=== PATIENT | male | born 1950 | race Caucasian/White ===

== ENCOUNTER 2022-01-07 04:59 | Observation (INO) ==
--- NOTE | 2021-12-18 10:30 | PAT Medication Instructions ---
Medication Instructions Date of Service December 18, 2021 Home Medications aspirin 81 mg tablet,delayed release 81 mg PO HS atorvastatin 40 mg tablet 40 mg PO HS amoxicillin 500 mg tablet 2,000 mg PO UD diclofenac sodium 1 % topical gel 1 g topical QID PRN duloxetine 20 mg capsule,delayed release 20 mg PO QAM hydrochlorothiazide 12.5 mg capsule 12.5 mg PO QAM losartan 100 mg tablet 100 mg PO QAM Continue as directed amoxicillin 500 mg tablet 2,000 mg PO UD ASK your surgeon for instructions diclofenac sodium 1 % topical gel 1 g topical QID PRN DO NOT take the morning of surgery hydrochlorothiazide 12.5 mg capsule 12.5 mg PO QAM losartan 100 mg tablet 100 mg PO QAM Take morning of surgery With a small sip of water, OTHERWISE NOTHING TO EAT OR DRINK AFTER MIDNIGHT: duloxetine 20 mg capsule,delayed release 20 mg PO QAM Take evening before surgery aspirin 81 mg tablet,delayed release 81 mg PO HS (unless directed otherwise by surgeon) atorvastatin 40 mg tablet 40 mg PO HS Other Notes If you have any questions please call us at [phone] or [phone] or [phone] or [phone]
--- NOTE | 2021-12-25 14:01 | Anesthesiology Consultation ---
Date of Service December 25, 2021 Assessment & Plan (1) Encounter for pre-operative examination: - Outpatient joint assessment: Patient is currently scheduled for inpatient pathway. If re-evaluated pending system levels during current pandemic/surgeon requests outpatient pathway, patient is not recommended candidate for outpatient joint program from anesthesia standpoint. Chart Review Chart Review: Acceptable Risk for Surgery and Patient seen in Pre Admission Testing Teaching & Discussion Pre-Anesthesia Teaching/Discussion Notes: Instructed NPO after midnight before surgery, except medications with 15 cc of water. Medication instructions provided according to the PAT guidelines. History Surgery Operation Date: 01/07/22 07:00 Proposed Procedures p Right Total Knee Arthroplasty - Bradley Zavala MD Height/Weight Height: 6 ft Weight: 154.3 kg Allergies Allergy/AdvReac Type Severity Reaction Status Date / Time NSAIDS (Non-Steroidal AdvReac Unknown DX Verified 12/18/21 09:09 Anti-Inflamma DIVERTICULOSIS - CAUSED INTERNAL BLEEDING, MILD ANEMIA Medications Home Medications Medication Instructions Recorded Confirmed Last Taken aspirin 81 mg tablet,delayed 81 mg PO HS 02/10/20 12/18/21 03/06/20 release atorvastatin 40 mg tablet 40 mg PO HS 02/10/20 12/18/21 03/06/20 amoxicillin 500 mg tablet 2,000 mg PO UD 12/18/21 12/18/21 Unknown diclofenac sodium 1 % topical gel 1 g topical QID PRN Pain 12/18/21 12/18/21 Unknown duloxetine 20 mg capsule,delayed 20 mg PO QAM 12/18/21 12/18/21 Unknown release hydrochlorothiazide 12.5 mg capsule 12.5 mg PO QAM 12/18/21 12/18/21 Unknown losartan 100 mg tablet 100 mg PO QAM 12/18/21 12/18/21 Unknown Past Medical History Medical History (Updated 12/25/21 @ 14:20 by Julia Downey PA-C) Depression Fatty liver Paisley disease Hiatal hernia History of anemia History of diverticulosis Hyperlipidemia Hypertension controlled, stable per pt Prediabetes A1c 6.2% 06/14/21 Presence of tooth-root and mandibular implants Skin cancer ears, legs, non-melanoma per pt Sleep apnea CPAP-compliant Patient denies h/o stroke, seizures, heart attack, heart failure, blood clots or blood transfusions. Exercise / Class Metabolic Activity III < 4 Walking/Shop/Light housework (denies CP or SOB with usual activities) Past Family History Family History Brother Family history of diabetes mellitus Other Patient's brother is Past Surgical History Surgical History History of cataract surgery LEFT History of colonoscopy History of endoscopy History of total left knee replacement (TKR) 2016 Status post Mohs surgery EAR, LEGS-NOT MELANOMA Past Anesthesia History No Hx of Anesthesia Complications and No Family Hx of Anesthesia Complications History of PONV No Hx of PONV and No Hx of Motion Sickness Social History Smoking Status: Never smoker Do You Dip or Chew Tobacco: No Hx Alcohol Use: Yes Alcohol type: hard liquor alcohol intake frequency: 0-2 drinks per day Hx Substance Use: No substance use type: does not use Review of Systems Patient denies chest pain, shortness of breath, dyspnea on exertion, reflux, fever, chills, cough, wheezing, or palpitations. Physical Exam Vital Signs Vitals BP 152/83 P 67 TEMP 99.5 SP02 95% on RA RESP 17 Physical Full cervical extension range of motion without pain TMD 3.5 finger breadths Mallampati Score 3 Dentition: intact, several implants, several caps/crowns; denies chipped or loose teeth or bridges Lungs: normal respiratory effort. Clear throughout to auscultation, no adventitious breath sounds Cardiac: regular rate and rhythm, no murmurs noted Carotid arteries: negative bruit bilat Lab Results Anesthesia Preop Results Results Anesthesia Widget: WBC 6.13 K/ul (4.8-10.8) 12/25/21 Hgb 14.1 g/dl (14.0-18.0) 12/25/21 Hct 40.3 % (40.1-51.0) 12/25/21 Plt 228 K/uL (130-400) 12/25/21 Na 136 mmol/L (136-145) 12/25/21 K 3.8 mmol/L (3.5-5.1) 12/25/21 Cl 104 mmol/L (98-107) 12/25/21 CO2 24 mmol/L (21-32) 12/25/21 BUN 15 mg/dl (6-23) 12/25/21 Creat 0.93 mg/dl (0.6-1.4) 12/25/21 Glucose Level 109 mg/dl (70-99(Fasting)) H 12/25/21 PT 10.6 Seconds (9.0-12.0) 12/25/21 PTT 25.3 Seconds (21.0-31.0) 12/25/21 INR 1.0 (0.9-1.1) 12/25/21 Urine Color Yellow 12/25/21 Urine Appearance Clear (Clear) 12/25/21 Urine pH 5.5 (4.5-7.5) 12/25/21 Urine Specific [place] 1.014 (1.000-1.030) 12/25/21 Urine Protein Negative (Negative) 12/25/21 Urine Glucose (UA) Negative (Negative) 12/25/21 Urine Ketones Negative (Negative) 12/25/21 Urine Blood Negative (Negative) 12/25/21 Urine Nitrite Negative (Negative) 12/25/21 Urine Bilirubin Negative (Negative) 12/25/21 Urine Urobilinogen Negative (Negative) 12/25/21 Urine Leukocyte Esterase Negative (Negative) 12/25/21 Blood Type A Positive 12/25/21 Antibody Screen NEGATIVE 12/25/21 Testing Electrocardiogram Date: 12/25/21 Sinus rhythm with 1st degree AV block, rate 68 bpm Incomplete RBBB Chest X-Ray Date: 12/25/21 No prior studies are available for comparison at the time of dictation. There is a large hiatal hernia. The heart is mildly enlarged noting atherosclerotic calcification of the thoracic aorta. The pulmonary vasculature is noncongested. The lungs and pleural spaces are clear noting bibasilar scarring/atelectasis. There is no pneumothorax. The skeletal structures are osteopenic. The bony thorax appears intact. IMPRESSION: 1. No active disease in the chest. 2. Large hiatal hernia. Echocardiogram Date: 04/16/17 EF 55-59% Normal LV wall motion Mild cLVH Grade I diastolic dysfunction Mild aortic valve regurgitation COVID-19 Risk Screen Screening Information COVID-19 Screen Date: 12/25/21 Exposure 21 Days Family/Household +COVID Last 21 Days: No Exposure 10 Days Any COVID Exposure Last 10 Days: No Symptoms Last 10 Days Experienced COVID Sx Last 10 Days: No + COVID 0-90 Days COVID + in Last 0-90 Days: No
[2022-01-07] MEDS ORDERED: TRANEXAMIC ACID 1,000 MG **IV Pre-op IV SCH (06:00)
[2022-01-07] MEDS ORDERED: ROPIVACAINE 0.5% HCL/PF 150 MG, BUPIVACAINE 0.75% MPF 20 ML, EPINEPHrine 0.15 MG, Ketor... INFIL SCH (06:00)
[2022-01-07] MEDS ORDERED: LR 60ML/HR IV SCH (06:00)
[2022-01-07] MEDS ORDERED: ACETAMINOPHEN 500 MG TAB PO SCH (06:00)
[2022-01-07] MEDS ORDERED: LR 500ML BOLUS, THEN 15ML/HR IV SCH (06:00)
[2022-01-07] MEDS ORDERED: Scopolamine 1 MG TDSY TD SCH (06:00)
[2022-01-07] MEDS ORDERED: TRANEXAMIC ACID 1,000 MG **IV Intra-op IV SCH (06:00)
[2022-01-07] MEDS ORDERED: BUPIVACAINE 0.5 % 5 MG/1 ML PF 10ML VIAL ONE (06:20)
[2022-01-07] MEDS ORDERED: ROPIVACAINE 0.5% 5 MG/ML 30 ML VIAL ONE (06:20)
--- NOTE | 2022-01-07 06:33 | History & Physical Bridge Note ---
Date of Service January 07, 2022 History & Physical Bridge Note I have examined the patient, reviewed the History & Physical and in the interval since the performance of the History & Physical I have noted the following changes of clinical significance: no changes noted Patient is awaare of the risks, is asymptomatic, and tested negative for COVID- 19.
[2022-01-07] MEDS ORDERED: ATROPINE SULFATE 0.1 MG/ML 10ML SYR IV PRN (06:44)
[2022-01-07] MEDS ORDERED: HYDROmorphone INJ 2 MG/ML SYR/VIAL IV PRN (06:44)
[2022-01-07] MEDS ORDERED: ONDANSETRON INJ 2 MG/ML 2 ML VIAL IV PRN ×2 (06:44→11:55)
[2022-01-07] MEDS ORDERED: ePHEDrine sulfate 50 MG/ML AMP IV PRN (06:44)
[2022-01-07] MEDS ORDERED: fentaNYL citrate 100 MCG/2 ML VIAL IV PRN (06:44)
[2022-01-07] MEDS ORDERED: MIDAZOLAM HCL 1 MG/ML 2ML VIAL ONE (06:45)
[2022-01-07] MEDS ORDERED: PROPOFOL IV EMULSION 10 MG/ML 20 ML VIAL IV ONE ×6 (07:00→09:52)
[2022-01-07] MEDS ORDERED: ORTHO JOINT ANESTHETIC ONE (07:04)
[2022-01-07] MEDS ORDERED: fentaNYL citrate 100 MCG/2 ML VIAL ONE (08:45)
[2022-01-07] MEDS ORDERED: ONDANSETRON INJ 2 MG/ML 2 ML VIAL ONE (09:11)
--- NOTE | 2022-01-07 10:23 | Post Operative Brief Note ---
Immediate Post Op Note v1 Date of Surgery January 07, 2022 Pre & Post Diagnosis Operation Date: 01/07/22 07:00 Pre-Op Diagnosis: Right Knee Degenerative Joint Disease Post-Op Diagnosis: Right Knee Degenerative Joint Disease I identified the patient and participated in the time-out.: Yes Procedure Operation Date: 01/07/22 07:00 Actual Procedures p Right Total Knee Arthroplasty(Right) - Bradley Zavala MD Surgeon Bradley Zavala MD Lead Application Architect Rhiannon Sommer PA-C (No fellow avail) Estimated Blood Loss 120 Findings Consistent with Post-Op Diagnosis Fluids 1100 cc Specimens Right knee contents Anesthesia Type MAC Spinal Regional Complications none
--- NOTE | 2022-01-07 10:24 | Operative Report ---
Post Operative Report Pre & Post Diagnosis Operation Date: 01/07/22 07:00 Pre-Op Diagnosis: Right Knee Degenerative Joint Disease Post-Op Diagnosis: Right Knee Degenerative Joint Disease I identified the patient and participated in the time-out.: Yes Procedure Operation Date: 01/07/22 07:00 Actual Procedures p Right Total Knee Arthroplasty(Right) - Bradley Zavala MD Surgeon Bradley Zavala MD Cloud Subject Matter Expert Pavel Sommer PA-C (No fellow avail) Estimated Blood Loss 120 Findings See Below Examined Under Anesthesia: ROM -- There was 5 degrees to 110 degrees of flexion Ligamentous examination -- revealed stable Jose, posterior drawer, varus and valgus stress at 0 and 30 degrees. [place]bridge Type IV changes of medial and patellofemoral compartments, grade II in the lateral compartment. Fluids 1100 cc Specimens Right knee contents Anesthesia Type MAC Spinal Regional Complications none Indications This is a 71-year-old male who has clinical and radiographic findings consistent with osteoarthritis of the a right knee. I recommended that a right total knee replacement be performed. The patient understands the risks of surgery, which include but not limited to: bleeding, infection, re-operation, damage to nerves and arteries, continued knee pain, knee stiffness, DVT, and . The patient understands all of these instructions and explanations, all of his questions have been satisfactorily addressed and the patient has elected to proceed. Informed consent was signed. Description of Procedure IMPLANTS: 1. Femur: Triathlon #5 Right PS. 2. Tibia: Triathlon #5 [place]. 3. Insert: Triathlon #5 x 11 mm PS X3 poly. 4. Patella: Triathlon A38 x 11 mm X3 poly. 5. Palacos cement. pavel Sommer PA-C is assisting with positioning, retracting, and closure due to fellow not available. Procedure: The patient was taken to the Operating Room and placed in the supine position after spinal and adductor canal nerve block was administered. My initials and a multidisciplinary time-out were used to identify the right leg as the correct operative limb. A tourniquet was placed high in the thigh. Prior to the incision, 3 grams of intravenous Ancef were given. The right leg was then prepped and draped in a standard sterile fashion. An Esmarch was used to exsanguinate the leg and the tourniquet was inflated to 250 mmHg. The planned mid-line 20 cm incision was created exposing the extensor mechanism. The medial parapatellar arthrotomy was made and the patella was everted. The patella was addressed first. It was prepared by reaming from 25 mm down to 14 mm. An A38 button was found to fit best. The peg holes were made in the standard fashion. The femur was addressed next and using computer assisted OrthoAlign with 3 degrees of flexion and 0 degrees of valgus, removing 10 mm in the standard fashion for the distal cut. The cut was made and the 4-in-1 cutting block for a size 5 femur was placed. These cuts and the cuts to place the box were made in the standard fashion. Our attention was then drawn to the tibia cut with using imageless computer assisted OrthoAlign, taking 2 mm from the medial low side. There was sufficient extension and flexion gap to fit a 11 mm spacer. A #5 Tibial baseplate fit well. A trial with a 11 mm spacer showed excellent stability in both flexion and extension, with good ligament balance, and thumbs free patellar tracking. Range of motion of 0-120 degrees. The tibial baseplate was prepped for the keel and stem. All components were removed. The tourniquet was deflated. Hemostasis was obtained. 90 ml of total knee cocktail were injected into the soft tissues and periosteum. After a 10 minute break, the limb was exsanguinated again and the tourniquet was re-inflated. All surfaces were copiously irrigated prior to placement of the components. The femoral component followed by Tibial baseplate were cemented in place and a 11 mm trial placed. Next, the patellar button was placed using the same Palacos cement. Once the cement had cured, the range of motion and stability were unchanged. The 11 mm X3 poly was placed. Again the range of motion and stability were unchanged The extensor mechanism was closed with 1-0 and 0 Vicryl with the knee bent approximately 60 degrees in a standard fashion. The peritenon and deep fascia was closed with 2-0 Vicryl. The subcutaneous layer was closed with 3-0 Vicryl. The skin was closed with Zipline and shield. The limb was cleaned and dried. 4x4 dressing was placed over top followed by ABDs, sterile Webril, and a foot to thigh Mauri bandage. The patient was then transferred to the Recovery Room in stable condition. The sponge and needle counts were correct. POST-OP INSTRUCTIONS: The patient will be WBAT. The patient will be admitted to the hospital. Labs will be obtained during the stay. DVT prophylaxis will included Eliquis 2.5 mg BID for 2 weeks followed by aspirin for 4 weeks, TEDs, and mechanical foot pumps. The dressing will be changed prior to their discharge or postop day #2 and covered with a Silverlon dressing, whichever comes first. I attest to the content of the Intraoperative Record and any orders documented therein. Any exceptions are noted below.
--- NOTE | 2022-01-07 11:01 | Operative Report ---
Post Operative Report Pre & Post Diagnosis Operation Date: 01/07/22 07:00 Pre-Op Diagnosis: Right Knee Degenerative Joint Disease Post-Op Diagnosis: Right Knee Degenerative Joint Disease I identified the patient and participated in the time-out.: Yes Procedure Operation Date: 01/07/22 07:00 Actual Procedures p Right Total Knee Arthroplasty(Right) - Bradley Zavala MD Surgeon Bradley Zavala Image Consultant Rhiannon Sommer PA-C (No fellow avail) Estimated Blood Loss 120 Findings Consistent with Post-Op Diagnosis Specimens none Drains none Anesthesia Type Spinal Complications none Disposition Accompanied Patient To Recovery: No Description of Procedure right total knee arthroplasty. I assisted with positioning, draping, holding retractures and wound closure, dressing application I attest to the content of the Intraoperative Record and any orders documented therein. Any exceptions are noted below. Supervising Physician Co-Signing Physician Notes bradley zavala
--- NOTE | 2022-01-07 11:25 | XRay Report ---
XR knee RT 1 or 2V routine HISTORY: 71 years-old Male Surgical Post Op right knee total joint arthroplasty COMPARISON: Leg length study radiographs 12/23/2021 TECHNIQUE: 2 views the right knee FINDINGS: Right knee total joint arthroplasty demonstrates satisfactory alignment without acute fracture. Expec radha postoperative soft tissue swelling with deep tissue air. IMPRESSION: Total joint arthroplasty with expected postoperative changes. ACT 112: Negative or not required by law. The above report was generated using voice recognition software. It may contain grammatical, syntax o r spelling errors. Electronically signed by: Derick Nova M.D. 01/07/2022 11:24 AM
--- NOTE | 2022-01-07 11:40 | Anesthesiology Progress Note ---
Date of Service January 07, 2022 Anesthesia Post Procedure Vital Signs Vital Signs: Temp Pulse Pulse Resp BP Pulse Ox O2 Del Method 01/07/22 11:25 49 L 15 153/72 H 95 Room Air 01/07/22 11:15 47 L 16 134/73 97 Room Air 01/07/22 11:05 36.4 C L 52 L 14 140/77 98 Room Air 01/07/22 10:55 49 L 14 151/83 H 100 Oxymask 01/07/22 10:45 48 L 12 150/73 H 100 Oxymask 01/07/22 10:38 36.6 C 56 L 18 155/77 H 99 Oxymask 01/07/22 05:27 36.4 C L 67 20 168/91 H 96 Room Air O2 Flow Rate 01/07/22 11:25 01/07/22 11:15 01/07/22 11:05 01/07/22 10:55 4 01/07/22 10:45 6 01/07/22 10:38 6 01/07/22 05:27 Transfer of Care Handoff Completed per policy Notes Mental Status: alert / awake / arousable and participated in evaluation Patient Amnestic to Procedure: Yes Nausea / Vomiting: adequately controlled Pain: adequately controlled Airway Patency, RR, SpO2: stable & adequate BP & HR: stable & adequate Hydration State: stable & adequate Anesthetic Complications: no major complications apparent and Pt Satisfied with anesthetic care
[2022-01-07] MEDS ORDERED: HYDROmorphone INJ 0.5 MG/0.5 ML SYR IV PRN (11:55)
[2022-01-07] MEDS ORDERED: TAMSULOSIN HCL 0.4 MG CAP PO PRN (11:55)
[2022-01-07] MEDS ORDERED: NALOXONE HCL 0.4 MG/1 ML VIAL/CARP IV PRN (11:55)
[2022-01-07] MEDS ORDERED: MAGNESIUM HYDROXIDE SUSP 30 ML UDC PO PRN (11:55)
[2022-01-07] MEDS ORDERED: bisacodyL 10 MG SUPP PR PRN (11:55)
[2022-01-07] MEDS: SODIUM CHLORIDE 0.9% 1000ML 1,000 ML IV SCH ×2 (12:16→21:56)
[2022-01-07] MEDS: ACETAMINOPHEN 500 MG TAB PO SCH ×2 (14:13→22:28)
[2022-01-07] MEDS: Scopolamine CHECK PATCH PLACEMENT SCH ×2 (16:07→23:14)
[2022-01-07] MEDS: ceFAZolin 2000MG 2,000 MG/15 ML SYR IV SCH ×2 (16:54→23:14)
[2022-01-07] MEDS: ASCORBIC ACID 500 MG TAB PO SCH (16:54)
[2022-01-07] MEDS: FERROUS GLUCONATE 324 MG TAB PO SCH (16:54)
--- NOTE | 2022-01-07 17:02 | Orthopedic Progress Note ---
Date of Service January 07, 2022 Assessment & Plan (1) Osteoarthritis of knee, unilateral: Plan: POD #0 s/p R TKA, doing as well as expected. Resume diet. WBAT with walker. OOB to chair. Continue pain control. Check labs tomorrow. DVT prophylaxis: TEDs 3 weeks, foot pumps while in hospital, Eliquis 2.5 mg BID for 2 weeks followed by ASA 81 mg BID for 4 weeks. PT/OT. D/C planning. Present on Admission?: Yes Admission and Anticipated Discharge Date Admission Date: January 07, 2022 Subjective Doing well Physical Exam Physical Exam: RLE: BCR < 2 sec. Sensation to light touch intact distally. Wiggling ankle and toes. Calf soft and non-tender. Dressing is clean, dry, intact. Results & Data ([facility]) Vital Signs (Past 12 Hours) Vital Signs Temp Pulse Pulse Resp BP Pulse Ox O2 Del Method 01/07/22 15:05 36.6 C 52 L 18 126/67 Room Air 01/07/22 13:45 36.5 C 53 L 18 153/81 H 99 Room Air 01/07/22 12:49 36.5 C 52 L 18 158/78 H 97 Room Air 01/07/22 12:18 36.4 C L 50 L 18 151/75 H 97 Room Air 01/07/22 12:01 Room Air 01/07/22 11:44 36.5 C 50 L 18 148/75 H 97 01/07/22 11:25 49 L 15 153/72 H 95 Room Air 01/07/22 11:15 47 L 16 134/73 97 Room Air 01/07/22 11:05 36.4 C L 52 L 14 140/77 98 Room Air 01/07/22 10:55 49 L 14 151/83 H 100 Oxymask 01/07/22 10:45 48 L 12 150/73 H 100 Oxymask 01/07/22 10:38 36.6 C 56 L 18 155/77 H 99 Oxymask 01/07/22 05:27 36.4 C L 67 20 168/91 H 96 Room Air O2 Flow Rate 01/07/22 15:05 01/07/22 13:45 01/07/22 12:49 01/07/22 12:18 01/07/22 12:01 01/07/22 11:44 01/07/22 11:25 01/07/22 11:15 01/07/22 11:05 01/07/22 10:55 4 01/07/22 10:45 6 01/07/22 10:38 6 01/07/22 05:27 Diagnostic Findings I reviewed the AP & lateral of the right knee which showed expected findings s/p R TKA.
[2022-01-07] MEDS: oxyCODONE HCL IR 5 MG TAB (IMMEDIATE RELEASE) PO PRN (19:29)
[2022-01-07] MEDS: DOCUSATE SODIUM 100 MG CAP PO SCH (20:43)
[2022-01-07] MEDS ORDERED: ATORVASTATIN 40 MG TAB PO SCH (21:00)
[2022-01-07] MEDS ORDERED: SENNA 8.6 MG TAB PO SCH (21:00)
[2022-01-08] MEDS: oxyCODONE HCL IR 5 MG TAB (IMMEDIATE RELEASE) PO PRN ×3 (04:09→13:01)
[2022-01-08] MEDS: ACETAMINOPHEN 500 MG TAB PO SCH (06:04)
[2022-01-08 07:17] LABS: Hematocrit (blood only) 36.9 % (40.1-51.0); Hemoglobin 12.6 g/dl (14.0-18.0); Mean Corpuscular Hgb Conc 34.1 g/dL (32.0-36.0); Mean Corpuscular Volume 90.9 fL (80.0-100.0); Mean Platelet Volume 9.6 fL (9.4-12.4); Platelet Count 215 K/uL (130-400); RDW Coefficient of Variation 13.4 % (11.5-14.5); RDW Standard Deviation 44.7 fL (36.4-46.3); Red Blood Count 4.06 M/uL (4.63-6.08); White Blood Count 11.23 K/ul (4.8-10.8)
[2022-01-08 07:40] LABS: Calcium 8.4 mg/dl (8.5-10.1); Est GFR (African American) 81.8 ml/min; Est GFR (Non-African American) 70.6 ml/min; Potassium 4.1 mmol/L (3.5-5.1)
[2022-01-08] MEDS: Scopolamine CHECK PATCH PLACEMENT SCH (08:19)
[2022-01-08] MEDS: ASCORBIC ACID 500 MG TAB PO SCH (08:19)
[2022-01-08] MEDS: FERROUS GLUCONATE 324 MG TAB PO SCH (08:20)
[2022-01-08] MEDS: DOCUSATE SODIUM 100 MG CAP PO SCH (08:20)
[2022-01-08] MEDS ORDERED: DULoxetine HCL 20 MG CAP PO SCH (09:00)
[2022-01-08] MEDS ORDERED: MULTIVITAMIN TAB PO SCH (09:00)
[2022-01-08] MEDS ORDERED: hydroCHLOROthiazide 25 MG TAB PO SCH (09:00)
[2022-01-08] MEDS ORDERED: APIXABAN 2.5 MG TAB PO SCH (09:00)
[2022-01-08] MEDS ORDERED: LOSARTAN POTASSIUM 50 MG TAB PO SCH (09:00)
--- NOTE | 2022-01-08 09:22 | Orthopedic Progress Note ---
Date of Service January 08, 2022 Assessment & Plan (1) Osteoarthritis of knee, unilateral: Plan: POD #1 s/p R TKA, doing as well as expected. Resume diet. WBAT with walker. OOB to chair. Continue pain control. Check labs tomorrow. DVT prophylaxis: TEDs 3 weeks, foot pumps while in hospital, Eliquis 2.5 mg BID for 2 weeks followed by ASA 81 mg BID for 4 weeks. PT/OT. Dressing left in place, if able to be discharged later today will remove dressing and assess incision which will be replaced with DSD or Silverlon. D/C planning for [facility], patient lives alone. Awaiting bed. Admission and Anticipated Discharge Date Admission Date: January 07, 2022 Subjective Doing well, pain increased overnight but tolerable. Review of Systems Review of Systems: All systems reviewed & are unremarkable except as noted in HPI & below Physical Exam Physical Exam: RLE: Sitting comfortably in chair, knee bent 90 degrees. able to actively extend the lower leg. BCR < 2 sec. Sensation to light touch intact distally. Wiggling ankle and toes. Calf soft and non-tender. Dressing is clean, dry, intact. Results & Data ([facility]) Vital Signs (Past 12 Hours) Vital Signs Temp Pulse Resp BP Pulse Ox O2 Del Method 01/08/22 07:01 36.9 C 62 17 146/81 H 95 Room Air 01/08/22 03:47 36.7 C 64 18 130/74 96 Room Air 01/08/22 00:00 36.6 C 55 L 18 142/72 H 98 CPAP Laboratory Results Laboratory Results WBC 11.23 K/ul (4.8-10.8) H 01/08/22 07:07 RBC 4.06 M/uL (4.63-6.08) L 01/08/22 07:07 Hgb 12.6 g/dl (14.0-18.0) L 01/08/22 07:07 Hct 36.9 % (40.1-51.0) L 01/08/22 07:07 MCV 90.9 fL (80.0-100.0) 01/08/22 07:07 MCH 31.0 pg (25.0-34.0) 01/08/22 07:07 MCHC 34.1 g/dL (32.0-36.0) 01/08/22 07:07 RDW Std Deviation 44.7 fL (36.4-46.3) 01/08/22 07:07 RDW Coeff of Brandi 13.4 % (11.5-14.5) 01/08/22 07:07 Plt Count 215 K/uL (130-400) 01/08/22 07:07 MPV 9.6 fL (9.4-12.4) 01/08/22 07:07 Sodium 138 mmol/L (136-145) 01/08/22 07:07 Potassium 4.1 mmol/L (3.5-5.1) 01/08/22 07:07 Chloride 106 mmol/L (98-107) 01/08/22 07:07 Carbon Dioxide 28 mmol/L (21-32) 01/08/22 07:07 Anion Gap 4 (3-11) 01/08/22 07:07 BUN 20 mg/dl (6-23) 01/08/22 07:07 Creatinine 1.05 mg/dl (0.6-1.4) 01/08/22 07:07 Est Cr Clr Drug Dosing 96.0 ml/min 01/08/22 07:07 Est GFR ( Amer) 81.8 ml/min 01/08/22 07:07 Est GFR (Non-Af Amer) 70.6 ml/min 01/08/22 07:07 BUN/Creatinine Ratio 19.0 (10-20) 01/08/22 07:07 Glucose 126 mg/dl (70-99(Fasting)) H 01/08/22 07:07 Calcium 8.4 mg/dl (8.5-10.1) L 01/08/22 07:07 SARS-CoV-2, RNA, NAAT NEGATIVE (NEGATIVE) 01/07/22 05:14 Impressions Knee X-Ray 01/07/22 10:56 XR knee RT 1 or 2V routine HISTORY: 71 years-old Male Surgical Post Op right knee total joint arthroplasty COMPARISON: Leg length study radiographs 12/23/2021 TECHNIQUE: 2 views the right knee FINDINGS: Right knee total joint arthroplasty demonstrates satisfactory alignment without acute fracture. Expected postoperative soft tissue swelling with deep tissue air. IMPRESSION: Total joint arthroplasty with expected postoperative changes. ACT 112: Negative or not required by law. The above report was generated using voice recognition software. It may contain grammatical, syntax or spelling errors. Electronically signed by: Derick Nova M.D. 01/07/2022 11:24 AM
--- NOTE | 2022-01-08 10:20 | Discharge Summary ---
Date of Service January 08, 2022 Discharge Data Procedures Performed Operation Date: 01/07/22 07:00 Actual Procedures p Right Total Knee Arthroplasty(Right) - Bradley Zavala MD Hospital Course (1) Osteoarthritis of knee, unilateral: Patient was admitted to [facility] after undergoing an elective right total knee arthroplasty by Dr. Zavala for observation. His surgery was performed with spinal anesthesia and a peripheral nerve block. He tolerated the surgery well without any intraoperative or postoperative complications. Postoperative x-rays showed a stable prosthesis. He was allowed out of bed, weight-bear as tolerated right lower extremity with the assistance of a walker. Physical therapy and Occupational Therapy consults were placed for postoperative gait training and exercises to his right knee. His home medications were continued. He was given a regular diet. He did not develop any postoperative shortness of breath, chest pains, nausea or vomiting. He was given Tylenol, oxycodone and IV Dilaudid as needed for pain medication. He did have some slightly elevated blood pressures during his inpatient stay which was monitored and stable. His vital signs remained stable during his inpatient stay. He was placed on Eliquis 2.5 mg twice daily for 2 weeks after surgery for DVT prophylaxis. Once the Eliquis is continued we will then start aspirin 81 mg twice daily for 4 weeks. He was also given SAY stockings and AV impulse boots. CBC and BMP was checked on postoperative day 1 which showed slightly elevated WBC, most likely due to the Decadron. It also showed mildly lowered hemoglobin and hematocrit suggestive of acute blood loss anemia. This was monitored and he remained asymptomatic. On postoperative day 1 his right knee dressings were ch anged and surgical dressings were removed and Silverlon dressing was applied. Case management was involved for disposition needs. He requested referral to [facility] and this was approved through his insurance. He was seen and evaluated postoperative by physical therapy and Occupational Therapy and was deemed safe for discharge. He was given home exercises to perform on his own a few times a day. Discharge instructions were reviewed with the patient. All questions were answered. He was discharged to [facility] in stable condition on January 08, 2022.
== END 2022-01-08 13:39 ==
LOC: 3E 04:59 → ASU 04:59
DX: Z88.6 Allergy status to analgesic agent; Z79.82 Long term (current) use of aspirin; Z20.822 Contact with and (suspected) exposure to COVID-19; M17.11 Unilateral primary osteoarthritis, right knee; Z79.899 Other long term (current) drug therapy